=== PATIENT | male | born 1995 | race Native Hawaiian/Other Pacific Islander ===

== ENCOUNTER 2019-10-17 10:15 | Emergency (ER) | payer SELFPAY ==
[~2019-10-17] VITALS: Ht 160 cm; Wt 86.2 kg
--- NOTE | 2019-10-17 10:18 | NUR ---
PT AMBULATED TO ER BED 11
[2019-10-17 10:21] VITALS: BP 134/84
--- NOTE | 2019-10-17 10:49 | NUR ---
Patient discharged with v/s stable by Dr. Zendejas. Written and verbal after care instructions given and explained. No nursing care provided in our ER. Patient verbalized understanding. Ambulatory with steady gait. All questions addressed prior to discharge. Advised to follow up with PMD.
== END 2019-10-17 10:49 | disposition home or self-care (01) ==
LOC: MED 10:15
DX: T16.2XXA Foreign body in left ear, initial encounter (principal); R03.0 Elevated blood-pressure reading, without diagnosis of hypertension; X58.XXXA Exposure to other specified factors, initial encounter; Y93.89 Activity, other specified; Y92.89 Other specified places as the place of occurrence of the external cause; Y99.8 Other external cause status
CPT/HCPCS: 69200; 99284